=== PATIENT | female | born 1965 | race Caucasian/White ===

== ENCOUNTER 2017-04-06 17:33 | Emergency (ER) | payer MEDICARE ==
[2017-04-06] MEDS ORDERED: HYDROmorphone 1 MG/ML Syringe IM ONE (18:20)
[2017-04-06 18:52] VITALS: BP 153/87
--- NOTE | 2017-04-06 18:52 | EDM.PDOC ---
ED HPI GENERAL MEDICAL PROBLEM - General Chief Complaint: Lower Extremity Injury/Pain Stated Complaint: Right ankle injury Time Seen by Provider: 04/06/17 18:40 Source of Information: Reports: Patient, RN Notes Reviewed History Limitations: Reports: No Limitations - History of Present Illness INITIAL COMMENTS - FREE TEXT/NARRATIVE: 51 year old female presents to the ED with complaints of right ankle pain. The pain twisted her ankle earlier today. She reports frequently spraining her ankles but this time the pain is much more severe than usual and she has minimal swelling. She denies numbness or tingling. She's unable to bear weight. Right Ankle Pain Score (Numeric/FACES): 8 - Related Data Allergies Allergy/AdvReac Type Severity Reaction Status Date / Time phenobarbital Allergy Hives Verified 04/06/17 17:49 geodon Allergy Hives Uncoded 04/06/17 17:49 Home Meds: Home Meds Desvenlafaxine [Pristiq] 100 mg PO DAILY 11/07/15 [History] Gabapentin [Neurontin] 300 mg PO TID 11/07/15 [History] Hydroxychloroquine [Plaquenil] 200 mg PO BID 11/07/15 [History] Mirtazapine [Remeron] 15 mg PO BEDTIME 11/07/15 [History] Nabumetone [Relafen] 500 mg PO BID 11/07/15 [History] QUEtiapine [SEROquel] 300 mg PO BEDTIME 11/07/15 [History] lamoTRIgine [Lamictal] 100 mg PO BID 11/07/15 [History] oxyCODONE ER [OxyCONTIN] 10 mg PO BID 11/07/15 [History] tiZANidine HCl [Zanaflex] 4 mg PO BID 11/07/15 [History] Lisinopril 10 mg PO DAILY 04/06/17 [History] Past Medical History Musculoskeletal History: Reports: Back Pain, Chronic, Fibromyalgia, Osteoarthritis, RA, Other (See Below) Other Musculoskeletal History: Chronic pain Neurological History: Reports: Other (See Below) Psychiatric History: Reports: Anxiety, Bipolar Social & Family History - Tobacco Use Smoking Status *Q: Current Every Day Smoker Years of Tobacco use: 5 Packs/Tins Daily: 1 - Caffeine Use Caffeine Use: Reports: Soda - Recreational Drug Use Recreational Drug Use: No - Living Situation & Occupation Living situation: Reports: , with Spouse Occupation: Unemployed Review of Systems - Review of Systems Review Of Systems: See Below Musculoskeletal: Reports: Joint Pain, Joint Swelling Neurological: Reports: No Symptoms. Denies: Numbness, Tingling, Weakness ED EXAM, GENERAL - Physical Exam Exam: See Below Exam Limited By: No Limitations General Appearance: Alert, WD/WN, No Apparent Distress Extremities: Other (tenderness and mild amount of swelling to the lateral malleolous. no obvious deformity. no crepitus. CMS intact.) Neurological: Alert, Oriented, No Motor/Sensory Deficits Course - Vital Signs Last Recorded V/S: Last Vital Signs Temp 98.2 F 04/06/17 17:43 Pulse 83 04/06/17 17:43 Resp 18 04/06/17 17:43 BP 153/87 H 04/06/17 18:10 Pulse Ox 98 04/06/17 17:43 - Orders/Labs/Meds Orders: Active Orders 24 hr Category Date Time Status Ankle Min 3V Rt [CR] Stat Exams 04/06/17 18:20 Ordered Meds: Medications Discontinued Medications Generic Name Dose Route Start Last Admin Trade Name Freq PRN Reason Stop Dose Admin Hydromorphone HCl 0.5 mg 04/06/17 18:20 04/06/17 18:36 Dilaudid IM 04/06/17 18:21 0.5 mg ONETIME ONE Administration - Re-Assessments/Exams Free Text/Narrative Re-Assessment/Exam: X-rays of right ankle are negative. Will place in air splint and crutches. Educated on return precautions. Instructed to f/u with ortho if not improved in 10-14 days. Discharge instructions as documented. Departure - Departure Time of Disposition: 18:53 Disposition: Home, Self-Care 01 Condition: Good Clinical Impression: Ankle sprain Qualifiers: Encounter type: initial encounter Involved ligament of ankle: unspecified ligament Laterality: right Qualified Code(s): S93.401A - Sprain of unspecified ligament of right ankle, initial encounter - Discharge Information Instructions: Ankle Sprain, [id number] Referrals: PCP,None [Primary Care Provider] - Forms: ED Department Discharge Additional Instructions: Rest, ice and elevate Crutches and ankle brace as needed Follow-up with Dr. Worrell if not improved in 10-14 days. Call [phone] to schedule Tylenol 650mg every 4-6 hours as needed for pain - My Orders Last 24 Hours: My Active Orders 04/06/17 18:20 Ankle Min 3V Rt [CR] Stat - Assessment/Plan Last 24 Hours: My Active Orders 04/06/17 18:20 Ankle Min 3V Rt [CR] Stat
--- NOTE | 2017-04-07 07:01 | CR ---
Right ankle: Four views of the right ankle were obtained. Comparison: No previous ankle exam. Ankle mortise is symmetric. No fracture, dislocation or other bony abnormality is seen. Impression: 1. No abnormality is identified on four-view right ankle exam. Diagnostic code #1
== END 2017-04-06 19:05 | disposition home or self-care (01) ==
LOC: JD.ED 17:33
DX: S93.401A Sprain of unspecified ligament of right ankle, initial encounter (principal); F17.210 Nicotine dependence, cigarettes, uncomplicated; F41.9 Anxiety disorder, unspecified; F31.9 Bipolar disorder, unspecified; M19.90 Unspecified osteoarthritis, unspecified site; Z79.899 Other long term (current) drug therapy; Z88.8 Allergy status to other drugs, medicaments and biological substances; X50.1XXA Overexertion from prolonged static or awkward postures, initial encounter
CPT/HCPCS: 73610; 96372; 99284; J1170; 99283